=== PATIENT | male | born 1960 | race Hispanic/Latino ===

== ENCOUNTER 2021-11-26 02:23 | Emergency (ER) | payer MEDICARE ==
--- NOTE | 2021-11-26 02:43 | Emergency Department Report ---
ED General Adult HPI - General Chief complaint: Head Injury Stated complaint: FALL/HEAD TRAUMA Time Seen by Provider: 11/26/21 02:34 Source: patient, EMS (Verbal report received from emergency medical services. EMS documentation not available at time of chart dictation ), RN notes reviewed Mode of arrival: Stretcher Limitations: No Limitations - History of Present Illness Initial comments: The patient was evaluated in the emergency department for symptoms described in the history of present illness. He/she was evaluated in the context of the global COVID-19 pandemic, which necessitated consideration that the patient might be at risk for infection with the virus that causes COVID-19. Institutional protocols and algorithms that pertain to the evaluation of patients at risk for COVID-19 are in a state of rapid change based on information released by regulatory bodies including the CDC and federal and state organizations. These policies and algorithms were followed during the patient's care in the emergency department. Please note that these policies, procedures and recommendations changed on a rapid basis. This is a 61-year-old gentleman. He is currently at a local inpatient psychiatric facility on a 1013 for suicidal ideation. He is recently seen at [facility], and was medically cleared at that hospital. His past medical history includes chronic renal insufficiency, hypothyroidism, back surgery, arthritis, neuropathy, and chronic back pain. He reports he is maintained on chronic opioids, but secondary to him being on a 1013, he is not receiving opioids. Current medications include aspirin, BuSpar, duloxetine, gabapentin, Synthroid, and pantoprazole, as well as trazodone. He presents to the ER today with EMS with a complaint of mechanical fall. He reports that he was changing his bed, and he fell and hit his head. He also hit his left forearm. Prior to the fall, denies headache, neck pain, chest pain, abdominal pain. The patient reports he is up-to-date with tetanus vaccination. The patient reports that he has chronic back pain, and feels like his back pain is worsened. No complaint of weakness/numbness. As per EMS, he is brought to the hospital for medical clearance after mechanical fall. Reportedly the fall was witnessed. -: Sudden Location: head, neck, back Quality: aching Consistency: constant Improves with: rest Worsens with: movement - Related Data Allergies Allergy/AdvReac Type Severity Reaction Status Date / Time No Known Allergies Allergy Unverified 11/26/21 02:33 ED Review of Systems ROS: Stated complaint: FALL/HEAD TRAUMA Other details as noted in HPI Constitutional: denies: fever Eyes: denies: eye discharge ENT: denies: epistaxis Respiratory: denies: cough Cardiovascular: edema (Chronic lower extremity edema). denies: chest pain Gastrointestinal: denies: abdominal pain, hematemesis, melena, hematochezia Genitourinary: denies: dysuria Musculoskeletal: arthralgia, myalgia Skin: lesions (Multiple abrasions) Neurological: headache. denies: weakness Psychiatric: denies: suicidal thoughts ED Physical Exam - General Limitations: No Limitations General appearance: alert, in no apparent distress - Head Head exam: Present: atraumatic, normocephalic - Eye Eye exam: Present: normal appearance, EOMI. Absent: nystagmus - ENT ENT exam: Present: normal exam, normal orophraynx, mucous membranes moist, normal external ear exam - Neck Neck exam: Present: normal inspection, tenderness, full ROM, other (There is paracervical and midline tenderness. There is no step-off). Absent: meningismus - Respiratory Respiratory exam: Present: normal lung sounds bilaterally. Absent: respiratory distress, wheezes, rales, rhonchi, stridor, decreased breath sounds - Cardiovascular Cardiovascular Exam: Present: normal rhythm, bradycardia, normal heart sounds. Absent: tachycardia, irregular rhythm, systolic murmur, diastolic murmur, rubs, gallop - GI/Abdominal GI/Abdominal exam: Present: soft. Absent: distended, tenderness, guarding, rebound, rigid - Rectal Rectal exam: Present: deferred - Extremities Exam Extremities exam: Present: full ROM, pedal edema (2+ edema in the bilateral lower extremities.), other (2+ pulses noted in the bilateral upper and lower extremities. There is no palpable cord. negative Homans sign. Muscular compartments are soft. The pelvis is stable.). Absent: normal inspection (Upper extremity abrasions and skin avulsion.), calf tenderness - Back Exam Back exam: Present: normal inspection, tenderness, muscle spasm, paraspinal tenderness. Absent: CVA tenderness (R) - Neurological Exam Neurological exam: Present: alert, other (No facial droop. Tongue midline. Extraocular movements intact bilaterally. Facial sensation intact to light touch in V1, V2, V3 distribution bilaterally. 5 and a 5 strength in 4 extremities. Sensation intact to light touch in 4 extremities.) - Psychiatric Psychiatric exam: Present: flat affect - Skin Skin exam: Present: warm, dry, abrasion, ecchymosis. Absent: rash ED Course Vital Signs 11/26/21 02:30 Temperature 98.2 F Pulse Rate 48 L Respiratory 16 Rate Blood Pressure 164/77 [Right] O2 Sat by Pulse 99 Oximetry - Reevaluation(s) Reevaluation #1: 11/26/21 03:44 Differential diagnosis, including but not limited to: Concussion, closed head injury, musculoskeletal pain, neck injury Assessment and plan: 61-year-old gentleman, who is clinically sober, with a GCS of 15 with mechanical fall and closed head injury. Given advanced age, history of renal insufficiency, fall from standing, obtain CT scan of the brain. Obtain CT scan of the cervical spine. Treat with Tylenol for pain. X-rays of the T and L-spine negative for acute findings. Bradycardia is appreciated, does not appear to be symptomatic and blood pressure is acceptable. Patient resting comfortably on stretcher at this time, and in no acute distress. - Pulse Oximetry Interpretation Digit-Finger Initial Pulse Oximetry Readin O2 Sat by Pulse Oximetry: 99 Actions Taken: none ED Medical Decision Making - Lab Data Vital Signs 11/26/21 11/26/21 02:30 03:44 Temperature 98.2 F Pulse Rate 48 L Respiratory 16 Rate Blood Pressure 164/77 [Right] O2 Sat by Pulse 99 Oximetry O2 Sat by Pulse 99 Oximetry [ Digit-Finger] - Radiology Data Radiology results: pending, report reviewed, image reviewed THORACIC SPINE 2 VIEWS INDICATION / CLINICAL INFORMATION: fall back pain. COMPARISON: None available. FINDINGS: VERTEBRAE: No acute fracture. There is a spine construct from T8 to L2 which demonstrates no hardware abnormality. Chronic compression deformity of L1. DISC SPACES / FACET JOINTS:Scattered spondylosis in the upper thoracic spine. PARASPINAL SOFT TISSUES:No significant abnormality. ADDITIONAL FINDINGS: None. Signer Name: Edis Soto DO Signed: 11/26/2021 2:31 AM Workstation Name: [employer] LUMBAR SPINE 2 VIEWS INDICATION / CLINICAL INFORMATION: fall back pain. COMPARISON: None available. FINDINGS: VERTEBRAE: No acute fracture. Partially visualized spine construct better appreciated on the thoracic spine radiographs. Chronic compression deformity of L1. DISC SPACES / FACET JOINTS:No significant abnormality. PARASPINAL SOFT TISSUES:No significant abnormality. ADDITIONAL FINDINGS: None. Signer Name: Edis Silva DO Charles Signed: 11/26/2021 2:31 AM Workstation Name: [employer] CT HEAD WITHOUT CONTRAST INDICATION / CLINICAL INFORMATION: Fall with a closed head injury. TECHNIQUE: All CT scans at this location are performed using CT dose reduction for ALARA by means of automated exposure control. COMPARISON: None available. FINDINGS: HEMORRHAGE: None. EXTRA-AXIAL SPACES: Mildly prominent likely related to cortical atrophy. VENTRICULAR SYSTEM: Normal in size and morphology for the patient's age. CEREBRAL PARENCHYMA: No significant abnormality. No acute territorial infarct. MIDLINE SHIFT / HERNIATION: None. CEREBELLUM / BRAINSTEM: No significant abnormality. ORBITS: Normal as visualized SOFT TISSUES: No significant abnormality. SKULL: No significant abnor mality. PARANASAL SINUSES / MASTOID AIR CELLS: Normal as visualized ADDITIONAL FINDINGS: None. IMPRESSION: 1. No acute intracranial abnormality in the setting of senescent changes.. Signer Name: Edis Silva DO Charles Signed: 11/26/2021 2:34 AM Workstation Name: [employer] CT CERVICAL SPINE WITHOUT CONTRAST INDICATION / CLINICAL INFORMATION: Fall with a closed head injury. TECHNIQUE: Axial CT images were obtained through the cervical spine. Sagittal and coronal reformatted images were produced. All CT scans at this location are performed using CT dose reduction for ALARA by means of automated exposure control. COMPARISON: None available. FINDINGS: VERTEBRAE: No significant abnormality. ALIGNMENT: No significant abnormality. DISC SPACES: Scattered mild degenerative disc disease throughout the cervical spine. FACET JOINTS: No significant abnormality. CRANIOCERVICAL JUNCTION:No significant abnormality. SPINAL CANAL: No significant abnormality. PARASPINAL SOFT TISSUES: No significant abnormality. ADDITIONAL FINDINGS: None. LUNG APICES: Prominent right paratracheal lymph nodes, nonspecific IMPRESSION: 1. No acute fracture or static subluxation of the cervical spine. 2. Mild degenerative disc disease scattered throughout the cervical spine. 3. Nonspecific prominent right paratracheal lymph nodes. Signer Name: Edis Shira Soto DO Signed: 11/26/2021 2:37 AM Workstation Name: [employer] Critical care attestation.: If time is entered above; I have spent that time in minutes in the direct care of this critically ill patient, excluding procedure time. ED Disposition Clinical Impression: Fall, Closed head injury, Neck pain, Back pain, Arm abrasion, DJD (degenerative joint disease) of cervical spine Disposition: [address] [place] [address] Is pt being admited?: No Does the pt Need Aspirin: No Condition: Stable Additional Instructions: Patient was not found to have any significant traumatic injuries during his evaluation in the emergency room. Please follow-up with your outpatient primary care doctor within the next week. Pain typically gets worse before gets better after mechanical fall. Rest, ice, compression, elevation, physical activity as tolerated, weightbearing as tolerated, acetaminophen for pain. Please return to the emergency room right away with new pain, worsened pain, migration of pain, projectile vomiting, change in mental status, confusion, inability tolerate liquid feeds, new, worsened or different symptoms not present on the initial emergency room evaluation CT scan brain and cervical spine showed no acute traumatic injuries. Nonspe cific incidental abnormal findings are noted. Please have your primary care doctor contact medical records department, to follow-up on incidental nonemergent abnormal findings. Referrals: [facility] [Provider Group] - 7-10 days
--- NOTE | 2021-11-26 03:35 | XRay Report ---
THORACIC SPINE 2 VIEWS INDICATION / CLINICAL INFORMATION: fall back pain. COMPARISON: None available. FINDINGS: VERTEBRAE: No acute fracture. There is a spine construct from T8 to L2 which demonstrates no hardware abnormality. Chronic compression deformity of L1. DISC SPACES / FACET JOINTS:Scattered spondylosis in the upper thoracic spine. PARASPINAL SOFT TISSUES:No significant abnormality. ADDITIONAL FINDINGS: None. Signer Name: Edis Soto DO Signed: 11/26/2021 3:31 AM Workstation Name: [id number]
--- NOTE | 2021-11-26 03:36 | XRay Report ---
LUMBAR SPINE 2 VIEWS INDICATION / CLINICAL INFORMATION: fall back pain. COMPARISON: None available. FINDINGS: VERTEBRAE: No acute fracture. Partially visualized spine construct better appreciated on the thoracic spine radiographs. Chronic compression deformity of L1. DISC SPACES / FACET JOINTS:No significant abnormality. PARASPINAL SOFT TISSUES:No significant abnormality. ADDITIONAL FINDINGS: None. Signer Name: Edis Soto DO Signed: 11/26/2021 3:31 AM Workstation Name: [id number]
--- NOTE | 2021-11-26 03:39 | Cat Scan Report ---
CT HEAD WITHOUT CONTRAST INDICATION / CLINICAL INFORMATION: Fall with a closed head injury. TECHNIQUE: All CT scans at this location are performed using CT dose reduction for ALARA by means of automated exposure control. COMPARISON: None available. FINDINGS: HEMORRHAGE: None. EXTRA-AXIAL SPACES: Mildly prominent likely related to cortical atrophy. VENTRICULAR SYSTEM: Normal in size and morphology for the patient's age. CEREBRAL PARENCHYMA: No significant abnormality. No acute territorial infarct. MIDLINE SHIFT / HERNIATION: None. CEREBELLUM / BRAINSTEM: No significant abnormality. ORBITS: Normal as visualized SOFT TISSUES: No significant abnormality. SKULL: No significant abnormality. PARANASAL SINUSES / MASTOID AIR CELLS: Normal as visualized ADDITIONAL FINDINGS: None. IMPRESSION: 1. No acute intracranial abnormality in the setting of senescent changes.. Signer Name: Edis Soto DO Signed: 11/26/2021 3:34 AM Workstation Name: [id number]
--- NOTE | 2021-11-26 03:41 | Cat Scan Report ---
CT CERVICAL SPINE WITHOUT CONTRAST INDICATION / CLINICAL INFORMATION: Fall with a closed head injury. TECHNIQUE: Axial CT images were obtained through the cervical spine. Sagittal and coronal reformatted images were produced. All CT scans at this location are performed using CT dose reduction for ALARA by means of automated exposure control. COMPARISON: None available. FINDINGS: VERTEBRAE: No significant abnormality. ALIGNMENT: No significant abnormality. DISC SPACES: Scattered mild degenerative disc disease throughout the cervical spine. FACET JOINTS: No significant abnormality. CRANIOCERVICAL JUNCTION:No significant abnormality. SPINAL CANAL: No significant abnormality. PARASPINAL SOFT TISSUES: No significant abnormality. ADDITIONAL FINDINGS: None. LUNG APICES: Prominent right paratracheal lymph nodes, nonspecific IMPRESSION: 1. No acute fracture or static subluxation of the cervical spine. 2. Mild degenerative disc disease scattered throughout the cervical spine. 3. Nonspecific prominent right paratracheal lymph nodes. Signer Name: Edis Soto DO Signed: 11/26/2021 3:37 AM Workstation Name: [id number]
[2021-11-26] MEDS ORDERED: ACETAMINOPHEN 325 MG TAB PO ONE (03:45)
[2021-11-26 07:50] VITALS: BP 139/73
== END 2021-11-26 09:11 ==
LOC: ED 02:23
DX: S09.90XA Unspecified injury of head, initial encounter (principal); M54.9 Dorsalgia, unspecified; S50.812A Abrasion of left forearm, initial encounter; M47.892 Other spondylosis, cervical region; W22.8XXA Striking against or struck by other objects, initial encounter; Y93.89 Activity, other specified; Y92.89 Other specified places as the place of occurrence of the external cause; Y99.8 Other external cause status
CPT/HCPCS: 70450; 72070; 72100; 72125; 99284